=== PATIENT | female | born 1955 | race Two or more races ===

== ENCOUNTER 2024-06-14 17:35 | Emergency (ER) | payer MEDICARE, OTHER ==
[~2024-06-14] VITALS: Ht 175.3 cm; Wt 136.0 kg
--- NOTE | 2024-06-14 17:58 | ED.PDOC ---
History of Present Illness HPI Comments 69 year old female ADELA presents to the ED with chief complaint of fever. Patient reports that she has been experiencing a fever with associated chills, body aches, dysuria, and urinary urgency for the past week. Patient relays that she recently sent a urine sample to [facility] to run a urine culture, but no results are back yet. Patient denies any hematuria, flank pain, abdominal pain, or dizziness. Patient was hypertensive at arrival. 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 History Family History Family History: Reviewed,noncontributory to illness Social History Smoker: Non-Smoker Alcohol: Denies ETOH Use Drugs: Denies Drug Use Lives In: Home Constitutional: Chills, Fever, Other (Body aches) EENTM: No Symptoms Reported Respiratory: No Symptoms Reported Cardiovascular: No Symptoms Reported Gastrointestinal: No Symptoms Reported Genitourinary: Urgency Neurological: No Symptoms Reported Musculoskeletal: No Symptoms Reported Integumentary: No Symptoms Reported Allergic/Immunocompromised: others Hematologic/Lymphatic: No Symptoms Reported Endocrine: No Symptoms Reported Psychiatric: No symptoms Reported All Other Systems: Reviewed and Negative Physical Exam General Appearance: Moderate Distress (Patient was in [id number] distress at time of evaluation due to urinary concerns.), Normal HEENT: Normal ENT Inspection, Pharynx Normal, TMs Normal Neck: Full Range of Motion, Non-Tender, Normal, Normal Inspection Respiratory: Chest Non-Tender, Lungs Clear, No Accessory Muscle Use, No Res piratory Distress, Normal Breath Sounds Cardiovascular: No Edema, No JVD, No Murmur, No Gallop, Normal Peripheral Pulses, Regular Rate/Rhythm Breast Exam: Deferred Gastrointestinal: No Organomegaly, Non Tender, No Pulsatile Mass, Normal Bowel Sounds, Soft Genitalia: Deferred Pelvic: Deferred Rectal: Deferred Extremities: No calf tenderness, Normal capillary refill, Normal inspection, Normal range of motion, Non-tender, No pedal edema Neurologic: Alert, No Motor Deficits, Normal Affect, Normal Mood, No Sensory Deficits Cerebellar Function: Normal Reflexes: Normal Skin: Dry, Normal Color, Warm Lymphatic: No Adenopathy Was a procedure done? Was a procedure done?: No Fever Differential Dx Differential Diagnosis: Other ( Electrolyte abnormality, sepsis, UTI, pyelonephritis) X-Ray, Labs, Meds, VS Vital Signs Date Time Temp Pulse Resp B/P (MAP) Pulse Ox O2 Delivery O2 Flow Rate FiO2 06/14/24 20:48 67 17 100 Room Air* 0 21 06/14/24 20:47 98.2 65 19 151/68 (95) 97 98.2 06/14/24 18:15 97.7 97 22 176/88 (117) 98 97.7 Lab Test 06/14/24 18:13 06/14/24 17:44 Range/Units White Blood Count 6.6 4.4-10.8 10^3/uL Red Blood Count 5.06 4.0-5.20 10^6/uL Hemoglobin 15.8 12.2-16.2 g/dL Hematocrit 47.5 H 36.0-46.0 % Mean Corpuscular Volume 94.0 80.0-100.0 fL Mean Corpuscular Hemoglobin 31.3 28.0-32.0 pg Mean Corpuscular Hemoglobin Concent 33.3 32.0-36.0 g/dL Red Cell Distribution Width 14.6 H 11.8-14.3 % Platelet Count 263 140-450 10^3/uL Mean Platelet Volume 9.7 6.9-10.8 fL Neutrophils (%) (Auto) 70.6 37.0-80.0 % Lymphocytes (%) (Auto) 19.2 10.0-50.0 % Monocytes (%) (Auto) 7.4 0.0-12.0 % Eosinophils (%) (Auto) 1.8 0.0-7.0 % Basophils (%) (Auto) 1.0 0.0-2.0 % Neutrophils # (Auto) 4.6 1.6-8.6 10 ^3/uL Lymphocytes # (Auto) 1.3 0.4-5.4 10 ^3/uL Monocytes # (Auto) 0.5 0-1.3 10 ^3/uL Eosinophils # (Auto) 0.1 0-0.8 10 ^3/uL Basophils # (Auto) 0.1 0-0.2 10 ^3/uL Nucleated Red Blood Cells 0.1 % Sodium Level 141 136-145 mmol/L Potassium Level 4.6 3.5-5.1 mmol/L Chloride Level 106 98-107 mmol/L Carbon Dioxide Level 29 20-31 mmol/L Anion Gap 6 5-15 Blood Urea Nitrogen 12 9-23 mg/dL Creatinine 0.90 0.550-1.02 mg/dL Glomerular Filtration Rate Calc 70 >90 mL/min BUN/Creatinine Ratio 13.3 10.0-20.0 Serum Glucose 112 H 74-106 mg/dL Lactic Acid Level 2.0 0.4-2.0 mmol/L Calcium Level 11.1 H 8.7-10.4 mg/dL Total Bilirubin 0.6 0.2-1.0 mg/dL Aspartate Amino Transferase (AST) 26 13-40 U/L Alanine Aminotransferase (ALT) 25 7-40 U/L Alkaline Phosphatase 83 46-116 U/L Troponin I High Sensitivity 4 </=34 ng/L B-Type Natriuretic Peptide 57.86 0-100 pg/mL Total Protein 6.7 5.7-8.2 g/dL Albumin 4.3 3.2-4.8 g/dL Urine Color Light-yellow Yellow Urine Clarity Clear Clear Urine pH 7.0 5.0-9.0 Urine Specific [place] 1.013 1.001-1.035 Urine Protein Negative Negative Urine Ketones Negative Negative Urine Blood Negative Negative /uL Urine Nitrite Negative Negative Urine Bilirubin Negative Negative Urine Urobilinogen 2 H Negative mg/dL Urine Leukocyte Esterase Trace Negative /uL Urine RBC 1 0 - 4 /hpf Urine Microscopic WBC 3 0-5 /HPF Urine Squamous Epithelial Cells Few <5 /hpf Urine Bacteria None seen None Seen /hpf Urine Glucose Normal Normal mg/dL Current Medications Medications (Trade) Dose Ordered Sig/Kala Route Start Time Stop Time Status Last Admin Phenazopyridine HCl (Pyridium Tablet) 200 mg ONCE ONCE PO 06/14/24 18:15 06/14/24 18:16 DC 06/14/24 20:47 X-Ray, Labs, Meds, VS Comment All studies performed the ED were evaluated by me personally. Serum laboratories were unremarkable and urinalysis reveals a mild UTI. Patient will given her 1st dose of antibiotics tonight and advised to utilize as directed. Additional medication as needed. Time of 1ST Reevaluation: 21:12 Reevaluation 1ST: Improved Consultation: PCP Patient Education/Counseling: Diagnosis, Treatment Family Education/Counseling: Diagnosis, Treatment, No Family Present Departure 1 Departure Time of Disposition: 21:15 Impression: Primary Impression: UTI (urinary tract infection) Disposition: HOME / SELF CARE / HOMELESS Condition: Stable Additional Instructions: Advise utilizing antibiotics as directed until completion as well as additional medication as needed. e-Prescriptions Acetaminophen (Acetaminophen) 500 Mg Tab 500 MG PO Q4HP PRN, #20 TAB Prov: JAMMIE JIMENEZ PAC 06/14/24 Phenazopyridine HCl (Phenazopyridine Hydrochlo) 100 Mg Tab 100 MG PO Q8HP PRN, #15 TAB Prov: JAMMIE JIMENEZ PAC 06/14/24 Nitrofurantoin Monohydrate Mac (Macrobid) 100 Mg Cap 100 MG PO BID for 3 Days, #6 CAP Prov: JAMMIE JIMENEZ PAC 06/14/24 Discharged With: Self, Friend Critical Care Note Critical Care Time?: No Stability Stability form required: No Heart Score Heart Score: Heart Score Response (Comments) Value History Slightly Suspicious 0 EKG Repolarization Disturb 1 Age >65 2 Risk Factors 1 or 2 risk factors 1 Troponin Normal limit 0 Total 4 I personally scribed for JAMMIE JIMENEZ PAC ([email or web address]) on 06/14/24 at 17:58. Electronically submitted by Jg José [email or web address]). JAMMIE JIMENEZ PAC Jun 14, 2024 17:58
[2024-06-14] MEDS ORDERED: DEXTROSE (50%) 50ML SYRG IV ONE (18:00)
[2024-06-14] MEDS ORDERED: SODIUM CHLORIDE 0.9% 1,000 ML IV ONE (18:00)
[2024-06-14 18:34] LABS: Basophils # (auto) 0.1 10 ^3/uL (0-0.2); Eosinophils # (auto) 0.1 10 ^3/uL (0-0.8); Eosinophils % (auto) 1.8 % (0.0-7.0); Hematocrit 47.5 % (36.0-46.0); Hemoglobin 15.8 g/dL (12.2-16.2); Lymphocytes # (auto) 1.3 10 ^3/uL (0.4-5.4); Lymphocytes % (auto) 19.2 % (10.0-50.0); Mean Corpuscular Hemoglobin 31.3 pg (28.0-32.0); Mean Corpuscular Hgb Conc. 33.3 g/dL (32.0-36.0); Monocytes # (auto) 0.5 10 ^3/uL (0-1.3); Monocytes % (auto) 7.4 % (0.0-12.0); Neutrophils # (auto) 4.6 10 ^3/uL (1.6-8.6); Neutrophils % (auto) 70.6 % (37.0-80.0); Nucleated Red Blood Cells % 0.1 %; Platelet Count (auto) 263 10^3/uL (140-450); Red Blood Cells 5.06 10^6/uL (4.0-5.20); Red Cell Distribution Width 14.6 % (11.8-14.3); White Blood Cell 6.6 10^3/uL (4.4-10.8)
[2024-06-14 18:53] LABS: Alanine Aminotransferase 25 U/L (7-40); Alkaline Phosphatase 83 U/L (46-116); Anion Gap 6 (5-15); Aspartate Aminotransferase 26 U/L (13-40); BUN/Creatinine Ratio 13.3 (10.0-20.0); Blood Urea Nitrogen 12 mg/dL (9-23); Carbon Dioxide 29 mmol/L (20-31); Chloride 106 mmol/L (98-107); Potassium 4.6 mmol/L (3.5-5.1); Sodium 141 mmol/L (136-145); Total Protein 6.7 g/dL (5.7-8.2)
[2024-06-14 18:54] LABS: Albumin 4.3 g/dL (3.2-4.8); Bilirubin, Total 0.6 mg/dL (0.2-1.0)
[2024-06-14 18:58] LABS: Calcium 11.1 mg/dL (8.7-10.4); Glucose 112 mg/dL (74-106)
[2024-06-14 20:47] VITALS: BP 151/68; TEMP 98.2
[2024-06-14] MEDS: PHENAZOPYRIDINE HCL 100 MG TAB PO ONE (20:47)
[2024-06-14 20:48] VITALS: PULSE 67; RESP 17; O2SAT 100
[2024-06-14 20:53] LABS: Urine Bacteria None Seen /hpf (None Seen)
[2024-06-14 21:01] LABS: Urine Blood Negative /uL (Negative); Urine Clarity Clear (Clear); Urine Color Light-Yellow (Yellow); Urine Protein, UAD Negative (Negative); Urine Specific Gravity 1.013 (1.001-1.035); Urine Squamous Epithelial Cell FEW /hpf (<5); Urine Urobilinogen 2 mg/dL (Negative); Urine WBC 3 /HPF (0-5)
[2024-06-14] MEDS ORDERED: ACET500T58 PO (21:17)
[2024-06-14] MEDS ORDERED: NITR-87 PO (21:17)
[2024-06-14] MEDS ORDERED: PHEN-1044 PO (21:17)
[2024-06-14] MEDS: NITROFURANTOIN 100 mg CAP PO ONE (21:46)
== END 2024-06-14 21:52 | disposition home or self-care (01) ==
LOC: EDBD 17:35 → ER 17:37
DX: N39.0 Urinary tract infection, site not specified (principal); R50.9 Fever, unspecified; M79.10 Myalgia, unspecified site; Z95.0 Presence of cardiac pacemaker
CPT/HCPCS: 36415; 80053; 81001; 83605; 83880; 84484; 85025

== ENCOUNTER → 2024-09-15 | Day surgery (SDC) | payer MEDICARE, OTHER ==
[~2024-09-15] VITALS: Ht 172.7 cm; Wt 144.2 kg
[~2024-09-15] MED LIST: ACET500T58 PO; ALBUAER3 IN; ALL100T GT; ASHW1CAP PO; ATE50T GT; BACDST PO; CHOL100055 PO; CITA10TA8 PO; DexAMETHasone SOD PHOS 10MG/1ML VIAL INJ ONE; FLUMAZENIL 0.1 MG/ML INJ 10ML MDV IV PRN; FURO40TA4 PO; GABA-1250 PO; GLYCOPYRROLATE 0.2 MG/ML 1ML VIAL ONE; HYDR25TA4 PO; HYDROmorphone HCL 2 MG/ML VL/or syr IV PRN; KETAMINE 50mg/ML 1ml syringe ONE; KETOROLAC TROMETH 30 MG/ML 1ML VIAL ONE; LIDOCAINE 1% INJ PF 5ML AMP ONE; MAGNTAB23 OR; MISC1CAP7 PO; MISCCAP66 OR; NALOXONE HCL 0.4 MG/ML VIAL IV PRN; OME20GT PO; OMEG100019 PO; ONDANSETRON HCL 4 MG/2 ML VIAL IV PRN; ONDANSETRON HCL 4 MG/2 ML VIAL ONE; PHEN-1044 PO; PHEN95TA17 OR; POTA-220 PO; PROPOFOL 10 MG/ML 20 ML IV ONE; SEMA1INJ SC; SIMV10TA20 PO; [UNRECOGNIZED DRUG - CODE] PO; ceFAZolin 1GM VL ONE; ePHEDrine SULFATE 50 MG/ML AMP IV PRN; fentaNYL CITRATE 100 MCG/2 ML VL IV PRN; hydrALAZINE HCL 20 MG/ML VL IV PRN
--- NOTE | 2024-09-15 07:22 | DVHOP2 ---
Operative Report - 2 Report Details Date: 09/15/24 Preop Diagnosis: Left carpal tunnel syndrome Postop Diagnosis: Left carpal tunnel syndrome Surgeon: Gato Kowalski MD Supervisor Hanging And Trimming: Hilario AQUINO Anesthesiologist: Reymundo OREILLY Anesthesia: Mac, Local Consent: The patient was informed of the risks and benefits of the procedure. These include but are not limited to complications of anesthesia, postoperative infection, incomplete relief of symptoms, recurrence of symptoms, damage to blood vessels, nerves and tendons, deep venous thrombosis, pulmonary embolism and possible need for repeat surgery in the future. Estimated Blood Loss: 2 cc Name of Procedure Performed Left carpal tunnel release, flexor tendon debridement Procedure Details Procedure Details: Indications: she has had EMG/NCV testing that is consistent with her clinical exam she wishes to proceed with surgical intervention. Risks/benefits/options and alternatives were discussed in depth with patient. Risks include but not exclusive to: bleeding, infection, nerve injury, chronic pain, stiffness, motor or sensory paralysis, loss of limb, deep venous thrombosis, and . PROCEDURE IN DETAIL: Patient was seen in the preoperative area. Consent was signed and then she was taken to the operating room. With the patient under adequate anesthesia, the upper extremity was prepped and draped in a sterile manner. The arm was exsanguinated. The tourniquet was elevated at 250 mm/Hg. Construction lines were made on the palm to identify the ring ray. 3 cm vertical incision made in mid-palm. Blunt dissection exposed the antebrachial fascia. Hemostasis was obtained with bipolar cautery. A distal-based window in the antebrachial fascia was then fashioned. Care was taken to protect the underlying contents. Careful dissection carried down to The transverse carpal ligament was easily visualized. the transverse carpal ligament was then divided. a 2 cm longitudinal incision made over wrist mass. Ganglion cyst noted. Mass was removed. Synovectomy performed of flexor tendon. The wound was then closed with 3-0 nylon. sterile dressing was applied. The tourniquet was deflated. The patient was awakened from anesthesia and returned to the Recovery Room in satisfactory condition, having tolerated the procedure well. Condition Good Disposition Home GATO KOWALSKI MD Sep 15, 2024 07:21
[2024-09-15] MEDS: ceFAZolin 2 GM/D5W50ml 50 ML IV ONE (07:24)
[2024-09-15] MEDS: LIDOCAINE 1% HCL (LOCAL ANESTH.) INJ 20ML MDV ONE (07:29)
[2024-09-15 07:43] VITALS: RESP 17; TEMP 97.8; O2SAT 97
[2024-09-15 08:10] VITALS: BP 131/61; PULSE 60; RESP 14; O2SAT 93
== END | disposition home or self-care (01) ==
LOC: SUR 06:43
PROVIDERS: ATTEND Orthopaedic Surgery Adult Reconstructive Orthopaedic Surgery
DX: G56.02 Carpal tunnel syndrome, left upper limb (principal); M67.432 Ganglion, left wrist; I10 Essential (primary) hypertension; I27.20 Pulmonary hypertension, unspecified; K21.9 Gastro-esophageal reflux disease without esophagitis; E78.00 Pure hypercholesterolemia, unspecified; M19.90 Unspecified osteoarthritis, unspecified site; F41.9 Anxiety disorder, unspecified; Z90.710 Acquired absence of both cervix and uterus; Z95.0 Presence of cardiac pacemaker; Z98.890 Other specified postprocedural states
CPT/HCPCS: 64721; J0690; J1100; J1885; J2003; J2405; J2704